=== PATIENT | male | born 1970 | race Hispanic/Latino ===

== ENCOUNTER 2021-08-28 11:31 | Emergency (ER) | payer OTHER ==
[2021-08-28] MEDS ORDERED: BUPIVACAINE 0.5% PF 10 ML VIAL ONE (11:44)
--- NOTE | 2021-08-28 12:52 | RAD REPORT ---
EXAM DESCRIPTION: RAD - Hand Left 3 View - 08/28/2021 12:36 pm CLINICAL HISTORY: hand injury Pain and swelling COMPARISON: No comparisons FINDINGS: Soft tissue laceration and tuft fractures are seen involving the third, fourth and fifth f ingers. No radiopaque foreign body.
[2021-08-28] MEDS ORDERED: TETANUS & DIPHTHERIA TOX,ADULT 0.5 ML VIAL ONE (13:45)
[2021-08-28] MEDS ORDERED: NA CHLORIDE 0.9% 50 ML ONE (13:45)
[2021-08-28] MEDS ORDERED: CEFAZOLIN SODIUM 1 GM/VIAL ONE (13:45)
[2021-08-28] MEDS ORDERED: LIDOCAINE 1% MPF 30 ML VIAL ONE (14:05)
[2021-08-28] MEDS ORDERED: ONDANSETRON 4 MG/2 ML VIAL ONE (14:47)
[2021-08-28] MEDS ORDERED: MORPHINE 4 MG/ML SYR ONE (14:47)
--- NOTE | 2021-08-28 15:33 | EDPHYS ---
Physician Documentation [facility] Name: Viraj Aviles Age: 51 yrs Sex: Male : 1970 Arrival Date: 08/28/2021 Time: 11:31 Bed 23 Private MD: ED Physician Satinder Fernandez HPI: 08/28 11:39 This 51 yrs old Male presents to ER via Ambulatory with complaints of Hand jmm Injury, Laceration To Hand. 11:39 The patient or guardian reports injury, pain. Onset: The symptoms/episode jmm began/occurred acutely, just prior to arrival. Modifying factors: The symptoms are alleviated by nothing, the symptoms are aggravated by nothing. This is a 51-year-old male with history of diabetes mellitus, hypertension the presents emerged part with multiple lacerations to the left hand. Patient states he was cut using a table saw. Patient unsure on tetanus immunization status.. Historical: - Allergies: 11:37 No Known Allergies; ab2 - PMHx: 14:57 Diabetes mellitus; Hypertensive disorder; jl7 - PSHx: 11:37 None; ab2 - Immunization history:: Adult Immunizations up to date. - Social history:: Smoking status: Patient denies any tobacco usage or history of. ROS: 11:39 Constitutional: Negative for fever, chills, and weight loss, Cardiovascular: Negative jmm for chest pain, palpitations, and edema, Respiratory: Negative for shortness of breath, cough, wheezing, and pleuritic chest pain, Abdomen/GI: Negative for abdominal pain, nausea, vomiting, diarrhea, and constipation. 11:39 Skin: Positive for laceration(s). 11:39 All other systems are negative. Exam: 11:39 Constitutional: This is a well developed, well nourished patient who is awake, alert, jmm and in no acute distress. Head/Face: atraumatic. Eyes: EOMI, no conjunctival erythema appreciated ENT: Moist Mucus Membranes Neck: Trachea midline, Supple Chest/axilla: Normal chest wall appearance and motion. Cardiovascular: Regular rate and rhythm. No edema appreciated Respiratory: Normal respirations, no respiratory distress appreciated Abdomen/GI: Non distended, soft Back: Normal ROM 11:39 Musculoskeletal/extremity: Multiple lacerations noted to the left third fourth and fifth phalanxes. Partial amputation noted to the left fourth finger.. 11:39 Skin: injury, laceration(s). 11:39 Neuro: Orientation: is normal, Mentation: is normal, Memory: is normal. 11:39 Psych: Behavior/mood is pleasant, cooperative. Vital Signs: 11:36 BP 171 / 100; Pulse 79; Resp 19; Temp 97.9; Pulse Ox 99% ; Weight 97.52 kg; Height 5 ab2 ft. 8 in. (172.72 cm); Pain 10/10; 14:40 BP 158 / 91; Pulse 70; Resp 15; Pulse Ox 98% ; jl7 15:17 BP 146 / 94; Pulse 71; Resp 15; Pulse Ox 98% ; jl7 11:36 Body Mass Index 32.69 (97.52 kg, 172.72 cm) ab2 Laceration: 18:50 Wound Repair of 6cm ( 2.4in ) subcutaneous laceration to left little fingernail, left jmm middle fingernail and left ring fingernail. Distal neuro/vascular/tendon intact. Anesthesia: Digital block administered with 9 mls of 0.5% marcaine. Wound prep: Wound irrigation by me, Copious irrigation. Skin closed with 11 4-0 Prolene using simple sutures and sterile technique. Patient tolerated well. MDM: 11:46 Patient medically screened. torres 15:30 ED course: I discussed the patient with hand surgery at [facility] whom did not m recommend a surgical washout. They recommended outpatient follow-up. I copiously irrigated the lacerations, Ancef was administered, patient prescribed oral antibiotics and given follow-up for hand surgery. Family given strict return precautions for infection.. 15:31 Data reviewed: vital signs, nurses notes. Counseling: I had a detailed discussion with torres the patient and/or guardian regarding: the historical points, exam findings, and any diagnostic results supporting the discharge/admit diagnosis, radiology results, the need for outpatient follow up, to return to the emergency department if symptoms worsen or persist or if there are any questions or concerns that arise at home. 08/28 11:46 Order name: Hand Left 3 View XRAY; Complete Time: 12:56 torres 08/28 13:06 Order name: Saline Lock; Complete Time: 14:22 kaushik Administered Medications: 11:45 Drug: Marcaine (bupivacaine) (0.5 %) 10 ml Volume: 10 ml; Route: Infiltration; bp 12:00 Follow up: Response: No adverse reaction jl7 14:00 Not Given (Patient Refused): Tetanus-Diphtheria Toxoid Adult 0.5 ml IM once jl7 14:12 Drug: Ancef (cefazolin) 1 grams Route: IVPB; Site: right forearm; jl7 14:30 Follow up: Response: No adverse reaction; IV Status: Completed infusion 7 14:45 Drug: morphine 4 mg Route: IVP; Site: right forearm; jl7 15:00 Follow up: Response: No adverse reaction; Pain is decreased jl7 14:45 Drug: Zofran (Ondansetron) 4 mg Route: IVP; Site: right forearm; jl7 15:00 Follow up: Response: No adverse reaction jl7 14:51 Drug: Lidocaine (1 %) 20 ml {Note: administered by PA. Yuriy} Volume: 20 ml; Route: jl7 Infiltration; 16:01 Follow up: Response: No adverse reaction jl7 Disposition: 08/29 15:39 Co-signature as Attending Physician, Satinder Fernandez MD I agree with the assessment and kdr plan of care. Disposition Summary: 08/28/21 15:32 Discharge Ordered Location: Home [facility] Condition: Stable [facility] Diagnosis - Left 3rd, 4th, 5th distal phalanx fracture - open [facility] Followup: [facility] - With: Charli Venegas MD - When: 2 - 3 days - Reason: Recheck today's complaints, Continuance of care, Re-evaluation by your physician Discharge Instructions: - Discharge Summary Sheet [facility] - Finger Fracture, Adult [facility] Forms: - Medication Reconciliation Form [facility] - Thank You Letter [facility] - Antibiotic Education [facility] - Prescription Opioid Use [facility] Prescriptions: - Tylenol-Codeine #3 300 mg-30 mg Oral - take 1 tablet by ORAL route every 4-6 hours; 20 tablet; Refills: 0, Product [facility] Selection Permitted - Clindamycin HCl 300 mg Oral Capsule - take 1 capsule by ORAL route every 6 hours for 10 days; 40 capsule; Refills: 0, [facility] Product Selection Permitted Signatures: Dispatcher [employer] Satinder Marshall MD MD kdr Mickail, Joel, PA PA jmm Leal, Jahala, RN RN jl7 Carlos A Obando RN RN Ag Darby Corrections: (The following items were deleted from the chart) 08/28 14:58 11:37 PMHx: None; roberto carlos jl7
--- NOTE | 2021-08-28 15:33 | ER ---
Nurse's Notes [facility] Name: Viraj Aviles Age: 51 yrs Sex: Male : 1970 Arrival Date: 08/28/2021 Time: 11:31 Bed 23 Private MD: Diagnosis: Left 3rd, 4th, 5th distal phalanx fracture - open Presentation: 08/28 11:36 Chief complaint: Patient states: "I cut my hand on a table saw at work approx 30 ab2 minutes ago.". Coronavirus screen: Vaccine status: Patient reports being unvaccinated. Client denies travel out of the [place] in the last 14 days. At this time, the client does not indicate any symptoms associated with coronavirus-19. Ebola Screen: Patient negative for fever greater than or equal to 101.5 degrees Fahrenheit, and additional compatible Ebola Virus Disease symptoms Patient denies exposure to infectious person. Patient denies travel to an Ebola-affected area in the 21 days before illness onset. No symptoms or risks identified at this time. Initial Sepsis Screen: Does the patient meet any 2 criteria? No. Patient's initial sepsis screen is negative. Does the patient have a suspected source of infection? No. Patient's initial sepsis screen is negative. Risk Assessment: Do you want to hurt yourself or someone else? Patient reports no desire to harm self or others. Onset of symptoms is unknown. 11:36 Method Of Arrival: Ambulatory ab2 11:36 Acuity: [place] 4 ab2 Historical: - Allergies: 11:37 No Known Allergies; ab2 - PMHx: 14:57 Diabetes mellitus; Hypertensive disorder; jl7 - PSHx: 11:37 None; ab2 - Immunization history:: Adult Immunizations up to date. - Social history:: Smoking status: Patient denies any tobacco usage or history of. Screenin:38 Abuse screen: Denies threats or abuse. Denies injuries from another. Nutritional ab2 screening: No deficits noted. Tuberculosis screening: No symptoms or risk factors identified. Fall Risk None identified. Assessment: 11:38 General: Appears in no apparent distress. uncomfortable, Behavior is calm, cooperative, ab2 appropriate for age. Pain: Complains of pain in left hand. Neuro: Level of Consciousness is awake, alert, obeys commands, Oriented to person, place, time, situation, Appropriate for age Portable [employer] Crew Chief are equal bilaterally Moves all extremities. Gait is steady, Speech is normal, Facial symmetry appears normal, Intact. Cardiovascular: No deficits noted. Denies chest pain, shortness of breath, Heart tones S1 S2 present Patient's skin is warm and dry. Respiratory: Airway is patent Respiratory effort is even, unlabored, Respiratory pattern is regular, symmetrical, Breath sounds are clear bilaterally. GI: No deficits noted. No signs and/or symptoms were reported involving the gastrointestinal system. : No deficits noted. No signs and/or symptoms were reported regarding the genitourinary system. Derm: Wound noted left hand Wound is Laceration. Musculoskeletal: Reports pain in left hand. Injury Description: Laceration sustained to left hand was sustained 30-60 minutes ago. moderate bleeding noted at this time. 13:00 Reassessment: Patient appears in no apparent distress at this time. No changes from jl7 previously documented assessment. Patient and/or family updated on plan of care and expected duration. Pain level reassessed. Patient is alert, oriented x 3, equal unlabored respirations, skin warm/dry/pink. 15:18 Reassessment: VLAD Yan at bedside suturing left finger injury. jl7 Vital Signs: 11:36 BP 171 / 100; Pulse 79; Resp 19; Temp 97.9; Pulse Ox 99% ; Weight 97.52 kg; Height 5 ab2 ft. 8 in. (172.72 cm); Pain 10/10; 14:40 BP 158 / 91; Pulse 70; Resp 15; Pulse Ox 98% ; jl7 15:17 BP 146 / 94; Pulse 71; Resp 15; Pulse Ox 98% ; jl7 11:36 Body Mass Index 32.69 (97.52 kg, 172.72 cm) ab2 ED Course: 11:31 Patient arrived in ED. am2 11:34 Yuriy Priest PA is PHCP. [facility] 11:34 Satinder Fernandez MD is Attending Physician. [facility] 11:36 Ag Gould is Primary Nurse. ab2 11:37 Triage completed. ab2 11:39 Arm band placed on right wrist. ab2 11:39 Patient has correct armband on for positive identification. Bed in low position. Call ab2 light in reach. Side rails up X2. 11:39 No provider procedures requiring assistance completed. ab2 12:37 Hand Left 3 View XRAY In Process Unspecified. EDMS 13:29 initiated a transfer with Ene Elliott Rn from the [facility]. eb 13:39 connected the hand surgeon production control planner for [facility] Dr. Zacarias with Yuriy Bermudez for eb patient transfer consultation/. 13:45 Missed attempt(s): 20 gauge in right antecubital area. Bleeding controlled, band aid jl7 applied, catheter tip intact. 13:50 Missed attempt(s): 22 gauge in right forearm. Bleeding controlled, band aid applied, jl7 catheter tip intact. 13:50 Inserted saline lock: 22 gauge in right forearm, using aseptic technique. ,using jl7 aseptic technique. Inserted by NACHO Sanford. 15:31 Charli Venegas MD is Referral Physician. [facility] 15:45 Wound care: to smash injury to left 3rd, 4th, and 5th fingers located on left little jl7 finger, left ring finger and left middle finger was cleaned with Betadine, irrigated with normal saline, dressed with Neosporin, nonstick gauze and coban, Patient tolerated well. 16:00 IV discontinued, intact, bleeding controlled, No redness/swelling at site. Pressure jl7 dressing applied. Administered Medications: 11:45 Drug: Marcaine (bupivacaine) (0.5 %) 10 ml Volume: 10 ml; Route: Infiltration; bp 12:00 Follow up: Response: No adverse reaction jl7 14:00 Not Given (Patient Refused): Tetanus-Diphtheria Toxoid Adult 0.5 ml IM once jl7 14:12 Drug: Ancef (cefazolin) 1 grams Route: IVPB; Site: right forearm; jl7 14:30 Follow up: Response: No adverse reaction; IV Status: Completed infusion jl7 14:45 Drug: morphine 4 mg Route: IVP; Site: right forearm; jl7 15:00 Follow up: Response: No adverse reaction; Pain is decreased jl7 14:45 Drug: Zofran (Ondansetron) 4 mg Route: IVP; Site: right forearm; jl7 15:00 Follow up: Response: No adverse reaction jl7 14:51 Drug: Lidocaine (1 %) 20 ml {Note: administered by VLAD Yan.} Volume: 20 ml; Route: jl7 Infiltration; 16:01 Follow up: Response: No adverse reaction jl7 Outcome: 15:32 Discharge ordered by MD. macdonald 16:03 Discharged to home ambulatory. jl7 16:03 Condition: stable 16:03 Discharge instructions given to patient, family, Instructed on discharge instructions, follow up and referral plans. medication usage, Demonstrated understanding of instructions, follow-up care, medications, Prescriptions given X 2. 16:04 Patient left the ED. jl7 Signatures: Dispatcher [employer] EDMS Yuriy Priest PA PA jmm Leal, Jahala, RN RN jl7 Isabel Montez amCarlos A Crum, RN RN Rowena Smith Alexis ab2 Corrections: (The following items were deleted from the chart) 14:58 11:37 PMHx: None; ab2 jl7
[2021-08-28 17:44] VITALS: TEMP 97.9
[2021-08-28 17:46] VITALS: O2SAT 98
[2021-08-28 17:47] VITALS: BP 146/94
== END 2021-08-28 16:04 | disposition home or self-care (01) ==
LOC: ER 11:31
PROC: 0JQK0ZZ Repair Left Hand Subcutaneous Tissue and Fascia, Open Approach (ICD-10-PCS; principal; 2021-08-28)
DX: S62.607B Fracture of unspecified phalanx of left little finger, initial encounter for open fracture (principal); S62.605B Fracture of unspecified phalanx of left ring finger, initial encounter for open fracture; S62.603B Fracture of unspecified phalanx of left middle finger, initial encounter for open fracture; W27.0XXA Contact with workbench tool, initial encounter; E11.9 Type 2 diabetes mellitus without complications; I10 Essential (primary) hypertension
CPT/HCPCS: 96365; 73130; 96375; 99284; 12002; J2405; J0690; 90714

== ENCOUNTER 2023-09-01 11:33 | Emergency (ER) | payer OTHER, SELFPAY ==
--- OUTSIDE RECORDS SUMMARY | 2023-09-01 11:36 | XMS REPORT | Continuity of Care Document ---
Author Name Unknown Address [address] [place] [address] [facility] thconnect Address [address] [place] [address] Care Team Providers Care [employer] Electrician Name Role Phone Rory Ramirez Attending Clinician Unavailable Gi Hernandez MD Attending Clinician [phone] JUVE MONK Attending Clinician Unavailable Padmaja Motta Attending Clinician [phone] Mary Sharif MD Attending Clinician [phone] [facility] Attending Clinician UnaJessica Varela Attending Clinician [phone] JESSICA WOLFE Attending Clinician Unavailable Payers Payer Name Policy Type Policy Number Effective Date Expirati on Date Source Problems Condition Name Condition Details Condition Category Status Onset Date Resolution Date Last Treatment Date Treating Clinician Comments Source No known active problems No known active problems Disease [facility] Allergies, Adverse Reactions, Alerts Allergy Name Allergy Type Status Severity Reaction(s) Onset Date Inactive Date Treating Clinician Comments Source No Known Drug Allergie s DA Active U 09-08 00:00: 00 [facility] Unable to Assess DA Active U 09-01 00:00: 00 [facility] No Known Drug Allergie s DA Active U 09-01 00:00: 00 [facility] NO KNOWN ALLERGIE S Drug Class Active [facility] Social History Social Habit Start Date Stop Date Quantity Comments Source Sexual [facility] Exposure to SARS-CoV-2 (event) Yes [facility] Sex Assigned At 1970 00:00:00 1970 [facility] Smoking Status Start Date Stop Date Source Tobacco smoking consumption unknown [facility] Never smoker [facility] Medications Ordered Medication Name Filled Medication Name Start Date Stop Date Current Medication? Ordering Clinician Indication Dosage Frequency Signature (SIG) Comments Components Source metFORMIN 1,000 mg tablet 10-04 00:00: 00 Yes 1000mg Take 1,000 mg by mouth 2 (two) times daily. [facility] lisinopril- hydrochloro thiazide 20-12.5 mg per tablet 10-02 00:00: 00 Yes 1{tbl} Take 1 tablet by mouth daily. [facility] Vital Signs Vital Name Observation Time Observation Value Comments [facility] Systolic blood pressure 2019-11-06 13:40:00 131 mm[Hg] [facility] Diastolic blood pressure 2019-11-06 13:40:00 84 mm[Hg] [facility] Heart rate 2019-11-06 13:40:00 82 /min [facility] Body temperature 2019-11-06 13:40:00 36.78 [facility] Respiratory rate 2019-11-06 13:40:00 18 /min [facility] Body height 2019-11-06 13:40:00 172.7 cm [facility] Body weight 2019-11-06 13:40:00 96.616 kg [facility] BMI 2019-11-06 13:40:00 32.39 kg/m2 [facility] Oxygen saturation in Arterial blood by Pulse oximetry 2019-11-06 13:40:00 97 /min [facility] Procedures Procedure Date / Time Performed Performing Clinicia n Source EMG 2023-02-03 15:37:12 Juve Monk [facility] Start Date/Time End Date/Time Encounter Type Admission Type Attending Clinicians Care Facility Care Department Encounter ID Source 2021-09-08 13:00:00 Inpatient Rory Ramirez [facility] [id number] [facility] 2023-02-02 15:00:00 2023-02-02 16:30:54 Ancillary Procedure Gi Hernandez [facility] [id number] 1..114 [id number] [facility] 2023-01-25 14:30:00 2023-01-25 14:30:00 Outpatient GUERDAJUVE STARR [facility] [id number] [facility] 2021-09-08 15:34:00 2021-09-08 15:34:00 Outpatient [facility] [id number] [facility] 2021-09-01 14:30:00 2021-09-01 14:30:00 Outpatient Elective Rory Ramirez [facility] [id number] [facility] 2021-09-01 14:30:00 2021-09-01 14:30:00 Outpatient [facility] [id number] [facility] 2019-11-08 00:00:00 2019-11-08 00:00:[address] [facility] [address] .114 [id number] [facility] 2019-11-07 00:00:00 2019-11-07 00:00:00 Telephone Mary Sharif [facility] 1.114 [id number] [facility] 2019-11-06 08:27:51 2019-11-06 08:47:51 Urgent Care P[facility], Acute Care Clinic Jessica Wolfe [facility] [address] 1.114 [id number] [facility] 2019-11-06 08:20:00 2019-11-06 08:20:00 Outpatient JESSICA HARVEY [facility] [id number] [facility] Results Test Description Test Time Test Comments Results Result Co mments Source Glucose [id number] 16:34:00* Test Item Value Reference Range Interpretation Comme nts Glucose Fingerstick (test code = WGLUC) 91 mg/dL 70-115 [employer] VIE T-PATI MOLINA T Glucose [id number] 18:32:00* Test Item Value Reference Range Interpretation Comme nts Glucose Fingerstick (test code = WGLUC) 101 mg/dL 70-115 [employer] She Boykin OR MICRO [id number] 17:05:00* Test Item Value Reference Range Interpretation Comme nts Gram Stain (test code = GS) 09/03/21 No epithelial cells seen Gram Stain (test code = GS1.1) No organisms seen OR NICOLLE Spec Culture (test code = ORMICCULT) 09/03/21 No growth after 1 day Anaerobic Culture (test code = ANC) 09/04/21 No anaerobes isolated to date, continuing Anaerobic Culture (test code = ANC3.1) No anaerobes isolated. [place] NICOLLE Spec Culture (test code = ORMICCULT2.1) agents with the possible exception of Ceftaroline. COMMENT: LEFT HANDPERFORMING SITE:[facility] [employer] [facility], [address] [place] [phone] Lens Gauger: ALICIA WELLINGTON MD,CLIA: [id number] [id number] 16:16:00* Test Item Value Reference Range Interpretation Comme nts Glucose Fingerstick (test code = WGLUC) 106 mg/dL 70-115 [employer] VIE T-PATI MOLINA T Notes Date/Time Note Provider Source 2021-09-08 18:18:00 [id number]+ [id number]/RDTHvl [id number]:18:00 [facility] [address] [place] [address] Orthopedics Operative Note Signed Patient: Viraj Aviles Medical Record#: [id number] : 1970 Acct:[id number] Age/Sex: 51 / M ADM Date: 09/08/21 Loc: [facility] Room: Report Number: [id number]: Rory Ramirez MD Orthopedic Operative Note Date of Procedure: 09/08/21 Detailed Description of Procedure: Pre Op Diagnosis: Left long finger saw wound defect S61.303D 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 phalanx M86.142 Left ring finger saw wound defect S61.305D Left ring finger osteomyelitis with bone loss distal phalanx M86.142 Left small finger saw wound defect S61.307D Left small finger osteomyelitis with bone loss distal phalanx M86.142 Post Op Diagnosis:Left long finger saw wound defect S61.303D 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 phalanx M86.142 Left ring finger saw wound defect S61.305D Left ring finger osteomyelitis with bone loss distal phalanx M86.142 Left small finger saw wound defect S61.307D Left small finger osteomyelitis with bone loss distal phalanx M86.142 Procedure: Left long finger debridement of osteomyelitis distal phalanx 34781 Left long finger secondary closure mobilizing over wound defect 10553 Left ring finger debridement of osteomyelitis distal phalanx 57529 Left ring finger secondary closure mobilizing over wound defect 27653 Left small finger debridement of osteomyelitis distal phalanx 43223 Left small finger secondary closure mobilizing over wound defect 73270 Surgeon: Rory Ramirez MD Anesthesia: General, see anesthetic record for details of method EBL: < 50 cc, none replaced Complications: none Specimens: none Implants: none Procedure details / Findings: In preop holding went over with the patient and his family the laboratory confirmation of osteomyelitis with Staph epidermidis and sensitivity profile and the new prescription we have written him to extend his antibiotic therapy for osteomyelitis the full duration. He needs to go pick those up intact that onto the end of his existing antibiotics is currently taking now. He already knows about the extent of bone loss that he created form self withthe saw so knows he is missing bone on all 3 digits and he also knows the true wound defects once they have been shown clearly to him in the office and so the game plan that he has created together with our team is to balance out the bone in the soft tissues creating functional digital tips that are well rounded well shaped well-padded over bone understanding that there will be no nail unit on the small finger and there will be modified nail units that are distorted on the long and the ring fingers. We started with the bone on each digit we can see where the osteomyelitis to case occurring at the margin of the previous saw cut soft tissue bed however appears very clean and responsive to treatment and we know from the laboratory that the Levaquin we have already had him on since the origin of the case covers the Staph epidermidis so he has been getting correct antibiotic therapy since the case began and that is the drug he will continue. Because he has an imbalance of 2 large wound defect relative to the bone defect remainders he has to be shaped down again sharp spikes and corners that we did again where he pinches and provide a smooth even pinching surface that he can actually use the hand with otherwise will feel like he is getting stabbed from the inside by doctorsand so that is done with the rongeur on each of the small and the ring finger where as on the long finger we dig out the residue of the osteomyelitis with a sharp edge of the curette but there is no paring down on the distal aspect of the long finger but we needed to do there is we had to mobilize the soft tissue envelope by elevating with a [place] blade so that will cross over and make up for the defect in the matrix created by the saw and we can closing down and still create a level flat surface and appropriate shape to the digit. Once we have shaped all the bones and taken down the osteomyelitis margins with the rongeur verified that the soft tissue beds appeared responsive to antibiotics makes it appropriate to go ahead and close in while we continue antibiotic therapy for the bones we scrub out all the wounds and then begin trimming the margins and shaping the flaps on the small finger there were 6 intersecting flaps that needed to converge in order to create a smoothrounded contour we recut them repeatedly as we inset them to create the perfect shape and avoid any apex points cones corners or other distortions spent a great deal of time on that and took out the residual germinal matrix that is deep to the dorsal nail fold so it does not produce unwanted nail spikes on this digit we leave the germinal matrix on the other 2 as he will have some form of nail most likely on those despite the high degree of damage. On the ring finger it is 3 converging flapsand on the long finger it is simply mobilizing advancing over the oblique defect zone of the junctions were closed with 5 0 chromic suture however to complete the case each digit independently dressed with a non constrictive fully padded fully protective dressing adjacent to each other DISPOSITION: Patient discharged to home. Patient's status is stable. [facility]al packet and a follow-up appointment. Patient instructed to call the practice number on front of packet for any questions including date and time of next encounter. Dr. Ramirez has directly prescribed to patient all outpatient medications, none to be dispensed by [facility]. The specific instruction at time of hospital discharge for any medications notdirectly prescribed for patient by Dr. Ramirez is that patient MUST receive all directives to either take or not take those medications from the practitioner who has originally prescribed those medications after having evaluated and diagnosed the related medical condition(s) non hand surgeryconditions that Dr. Ramirez does not evaluate or treat and thus CANNOT state to either take or not take those medications. Note that the preceding text indeed includes standardized language that accurately describes my personal methods of performing this procedure and is used for quality management nurse reproducibly on eachcase including that of this individual patient with any variances or unusual findings specifically noted. Signature authenticates the date, patient, surgeon, diagnoses and procedure but not the main body text where the quality of the voice recognition software product chosen for use is prone to substantial error. Dictated By: Rory Ramirez MD Dictated By: Signed By: Rory Ramirez MD 09/08/211824 DD/ 17 TD/TT: 09/08/211817 [employer] Superintendent: NAOMIE cc: NAOMIE; PCPUNK* Rory Ramirez MD; PCP,UNKNOWN P.OPOPOrthopedic Operative [id number] [id number]:18:00P.OPTram e for patient [id number]:19:27 [facility] quoc
--- NOTE | 2023-09-01 12:32 | RAD REPORT ---
EXAM DESCRIPTION: RAD - Pelvis - 09/01/2023 12:20 pm CLINICAL HISTORY: pain, bruising buttocks, fall COMPARISON: <Comparisons> FINDINGS: No fracture or dislocation is seen.
--- NOTE | 2023-09-01 12:34 | RAD REPORT ---
EXAM DESCRIPTION: RAD - Femur Right - 09/01/2023 12:20 pm CLINICAL HISTORY: PAIN COMPARISON: No comparisons FINDINGS: No acute fracture or dislocation.
--- NOTE | 2023-09-01 12:35 | RAD REPORT ---
EXAM DESCRIPTION: RAD - Tib Fib Right - 09/01/2023 12:21 pm CLINICAL HISTORY: Pain;Swelling COMPARISON: No comparisons FINDINGS: No fracture or dislocation seen.
--- NOTE | 2023-09-01 12:46 | RAD REPORT ---
EXAM DESCRIPTION: CT - Lower Ext Wo Con W/ Mpr - 09/01/2023 12:37 pm CLINICAL HISTORY: right leg injury, swelling, hematoma COMPARISON: No comparisons FINDINGS: The hamstring musculature of the right leg is enlarged with intramuscular fluid and hyperd ense material suggesting blood product. This is most compatible with intramuscular hematoma/ partial tearing. Small bony fragment seen at the right ischium suspicious for small avulsion, age indetermina te. No intrapelvic finding seen. Right hip is intact. All CT scans are performed using dose optimization technique as appropriate and may include automated exposure control or mA/KV adjustment according to patient size. IMPRESSION: Significant enlargement of the right hamstring musculature with intramuscular fluid and blood product suspected. This likely indicates partial-thickness muscle tear/high-grade strain. Small bony fragment adjacent to the right ischium could be small avulsion, age indeterminate.
--- NOTE | 2023-09-01 13:01 | EDPHYS ---
Physician Documentation [facility] Name: Viraj Aviles Age: 53 yrs Sex: Male : 1970 Arrival Date: 09/01/2023 Time: 11:33 Bed 6 Private MD: ED Physician Aaron Nieto HPI: 08/31 12:05 This 53 yrs old Male presents to ER via Ambulatory with complaints of Fall rn Injury, Leg Injury. 12:05 Details of fall: The patient fell from an upright position, while walking. Onset: The rn symptoms/episode began/occurred 5 day(s) ago. Associated injuries: The patient sustained Right leg. Severity of symptoms: At their worst the symptoms were moderate, in the emergency department the symptoms have improved. The patient has not experienced similar symptoms in the past. Patient reports slipped and did the splits outside in the grass 5 days ago. Patient reports pain to right buttocks and right hamstring and inner thigh area. No blood thinners. Reports pain to walk and move. Also noted bruising and swelling in the right medial thigh.. Historical: - Allergies: 12:00 No Known Allergies; mb9 - Home Meds: 12:00 atorvastatin oral [Active]; Metformin Oral [Active]; Lisinopril Oral [Active]; mb9 - PMHx: 12:00 diabetes mellitus; Hypertensive disorder; mb9 - PSHx: 12:00 None; mb9 - Immunization history:: Adult Immunizations up to date. - Infectious Disease History:: Denies. - Social history:: Smoking status: Patient denies any tobacco usage or history of. - Family history:: not pertinent. - Hospitalizations: : No recent hospitalization is reported. ROS: 12:05 Constitutional: Negative for fever, chills, and weight loss, Neck: Negative for injury, rn pain, and swelling, Cardiovascular: Negative for chest pain, palpitations, and edema, Respiratory: Negative for shortness of breath, cough, wheezing, and pleuritic chest pain, Abdomen/GI: Negative for abdominal pain, nausea, vomiting, diarrhea, and constipation, Back: Negative for injury and pain, MS/Extremity: Positive for pain to right thigh Exam: 12:05 Constitutional: This is a well developed, well nourished patient who is awake, alert, rn and in no acute distress. MS/ Extremity: Pulses equal, no cyanosis. Neurovascular intact. Ecchymosis and swelling noted to right gluteus region but most significant right medial thigh and proximal tibia/popliteal region. Compartments are soft. Pulses intact. No bony tenderness. No gross deformity noted or angulation. Vital Signs: 11:59 BP 143 / 92; Pulse 68; Resp 18; Temp 98; Pulse Ox 100% ; Weight 83.91 kg; Height 5 ft. mb9 8 in. ; Pain 8/10; 13:06 BP 118 / 78; Pulse 74; Resp 18; Pulse Ox 100% on R/A; mb9 11:59 Body Mass Index 28.13 (83.91 kg, 172.72 cm) mb9 11:59 Pain Scale: Adult mb9 MDM: 11:37 Patient medically screened. rn 12:57 Differential diagnosis: contusion, fracture, Avulsion fracture, muscle or tendon tear. rn Data reviewed: vital signs, nurses notes, radiologic studies, CT scan, plain films, and as a result, I will discharge patient. Counseling: I had a detailed discussion with the patient and/or guardian regarding the historical points, exam findings, and any diagnostic results supporting the discharge/admit diagnosis, radiology results, the need for outpatient follow up, to return to the emergency department if symptoms worsen or persist or if there are any questions or concerns that arise at home. Special discussion: I discussed with the patient/guardian in detail that at this point there is no indication for admission to the hospital. It is understood, however, that if the symptoms persist or worsen the patient needs to return immediately for re-evaluation. Based on the history and exam findings, there is no indication for further emergent testing or inpatient evaluation. I discussed with the patient/guardian the need to see the orthopedic surgeon for further evaluation of the symptoms. I discussed with the patient/guardian the need to see the primary care provider for further evaluation of the symptoms. ED course: Patient with probably moderate hamstring tear and small ischial avulsion injury. Will place in knee immobilizer and crutches and discharged home. Patient will follow-up with PCP for MRI and follow-up with orthopedics.. 08/31 12:01 Order name: XRAY Pelvis; Complete Time: 12:50 rn 08/31 12:01 Order name: XRAY Femur RIGHT; Complete Time: 12:50 rn 08/31 12:01 Order name: XRAY Tib Fib RIGHT; Complete Time: 12:50 rn 08/31 12:06 Order name: Lower Ext Wo Con W/ Mpr; Complete Time: 12:50 EDMS 08/31 12:57 Order name: Knee Immobilizer; Complete Time: 13:00 rn 08/31 12:57 Order name: Crutches; Complete Time: 13:00 rn Administered Medications: No medications were administered Disposition Summary: 09/01/23 13:00 Discharge Ordered Notes: Location: Home rn Problem: new rn Symptoms: have improved rn Condition: Stable rn Diagnosis - Right hamstring musle tear rn - Nondisplaced avulsion fracture of right ischium, initial encounter for closed rn fracture Followup: rn - With: Private Physician - When: As needed - Reason: Recheck today's complaints, Re-evaluation by your physician Discharge Instructions: - Discharge Summary Sheet rn - Hamstring Strain rn - How to Use a Knee Immobilizer rn Forms: - Medication Reconciliation Form rn - Antibiotic furnace door tender - Prescription Opioid Use rn - Patient Portal Instructions rn - Leadership Thank You Letter rn Prescriptions: - Tramadol 50 mg Oral tablet - take 1 tablet ORAL route every 8 hours as needed; 15 tablet; Refills: 0, rn Product Selection Permitted Signatures: Dispatcher [employer] EDOH Aaron Nieto MD MD rn Breneman, Mary Beth, RN RN mb9 Corrections: (The following items were deleted from the chart) 12:01 12:01 Pelvis+RAD.RAD.BRZ ordered. EDMS EDMS 12:01 12:01 Femur Right+RAD.RAD.BRZ ordered. EDMS EDMS 12:01 12:01 Tib Fib Right+RAD.RAD.BRZ ordered. EDMS EDMS 12:08 12:05 Constitutional: This is a well developed, well nourished patient who is awake, rn alert, and in no acute distress. rn
--- NOTE | 2023-09-01 13:01 | ER ---
Nurse's Notes [facility] Name: Viraj Aviles Age: 53 yrs Sex: Male : 1970 Arrival Date: 09/01/2023 Time: 11:33 Bed 6 Private MD: Diagnosis: Right hamstring musle tear;Nondisplaced avulsion fracture of right ischium, initial encounter for closed fracture Presentation: 08/31 11:59 Chief complaint: Patient states: "I fell on Tuesday and hurt my right leg. It hurts the mb9 most on the inside of the leg and i'm bruised. I didn't hit my head and I don't take blood thinners.". Coronavirus screen: At this time, the client does not indicate any symptoms associated with coronavirus-19. Ebola Screen: No symptoms or risks identified at this time. Initial Sepsis Screen: Does the patient meet any 2 criteria? No. Patient's initial sepsis screen is negative. Does the patient have a suspected source of infection? No. Patient's initial sepsis screen is negative. Risk Assessment: Do you want to hurt yourself or someone else? Patient reports no desire to harm self or others. Onset of symptoms was 2023. 11:59 Method Of Arrival: Ambulatory mb9 11:59 Acuity: LEIGHTON 4 mb9 Triage Assessment: 12:01 General: Appears uncomfortable, Behavior is calm, cooperative. Pain: Complains of pain mb9 in right leg Pain currently is 8 out of 10 on a pain scale. Quality of pain is described as throbbing, Pain began 2-3 days ago. Is continuous. Pain: Aggravated by increased activity, repositioning, weight bearing. EENT: No signs and/or symptoms were reported regarding the EENT system. Neuro: Donohue Agitation-Sedation Scale (RASS): 0 - Alert and Calm Level of Consciousness is awake, alert, obeys commands, Oriented to person, place, time, situation, Appropriate for age. Cardiovascular: Patient's skin is warm and dry. Respiratory: Airway is patent Respiratory effort is even, unlabored, Respiratory pattern is regular, symmetrical. GI: Abdomen is flat, non-distended, Bowel sounds present X 4 quads. Abd is soft and non tender X 4 quads. : No signs and/or symptoms were reported regarding the genitourinary system. Derm: Bruising that is bright red, dark purple, on right leg. Musculoskeletal: Range of motion: intact in all extremities, Swelling present in right leg. Historical: - Allergies: 12:00 No Known Allergies; mb9 - Home Meds: 12:00 atorvastatin oral [Active]; Metformin Oral [Active]; Lisinopril Oral [Active]; mb9 - PMHx: 12:00 diabetes mellitus; Hypertensive disorder; mb9 - PSHx: 12:00 None; mb9 - Immunization history:: Adult Immunizations up to date. - Infectious Disease History:: Denies. - Social history:: Smoking status: Patient denies any tobacco usage or history of. - Family history:: not pertinent. - Hospitalizations: : No recent hospitalization is reported. Screenin:02 [facility] ED Fall Risk Assessment (Adult) History of falling in the last 3 months, mb9 including since admission Yes- single mechanical fall (1 pt) Confusion or Disorientation No (0 pts) Intoxicated or Sedated No (0 pts) Impaired Gait No (0 pts) Mobility Assist Device Used No (0 pt) Altered Elimination No (0 pt) Score/Fall Risk Level 3 or more points = High Risk Oriented to surroundings, Maintained a safe environment, Educated pt \\T\\ family on fall prevention, incl call for assistance when getting out of bed, Assessed \\T\\ reinforced patient's understanding of fall precautions. Abuse screen: Denies threats or abuse. Nutritional screening: No deficits noted. Tuberculosis screening: No symptoms or risk factors identified. Assessment: 13:06 Reassessment: No changes from previously documented assessment. Patient and/or family mb9 updated on plan of care and expected duration. Pain level reassessed. Patient is alert, oriented x 3, equal unlabored respirations, skin warm/dry/pink. Vital Signs: 11:59 BP 143 / 92; Pulse 68; Resp 18; Temp 98; Pulse Ox 100% ; Weight 83.91 kg; Height 5 ft. mb9 8 in. ; Pain 8/10; 13:06 BP 118 / 78; Pulse 74; Resp 18; Pulse Ox 100% on R/A; mb9 11:59 Body Mass Index 28.13 (83.91 kg, 172.72 cm) mb9 11:59 Pain Scale: Adult mb9 ED Course: 11:36 Patient arrived in ED. mr 11:37 Aaron Nieto MD is Attending Physician. rn 11:58 Bhargavi Figueroa, RN is Primary Nurse. mb9 11:59 Arm band placed on. mb9 12:00 Triage completed. mb9 12:02 Placed in gown. Bed in low position. Call light in reach. Side rails up X 1. Provided mb9 Education on: press call light if needing anything. Client placed on continuous cardiac and pulse oximetry monitoring. NIBP monitoring applied. 12:21 XRAY Pelvis In Process Unspecified. EDMS 12:21 XRAY Femur RIGHT In Process Unspecified. EDMS 12:21 XRAY Tib Fib RIGHT In Process Unspecified. EDMS 12:39 Lower Ext Wo Con W/ Mpr In Process Unspecified. EDMS 13:06 No provider procedures requiring assistance completed. Patient did not have IV access mb9 during this emergency room visit. 13:07 Crutch training done. Knee immobilizer applied on right knee. mb9 Administered Medications: No medications were administered Medication: 12:03 VIS not applicable for this client. mb9 Outcome: 13:00 Discharge ordered by . rn 13:07 Discharged to home ambulatory, with crutches, with family, mbReji 13:07 Condition: stable 13:07 Discharge instructions given to patient, family, Instructed on discharge instructions, follow up and referral plans. Demonstrated understanding of instructions, follow-up care, medications, Prescriptions given X 1, 13:16 Patient left the ED. mb9 Signatures: Dispatcher [employer] Bhargavi Dumont, Reg Reg Aaron Nieto MD MD rn Breneman, Mary Beth, RN RN [email or web address]
[2023-09-01 13:27] VITALS: BP 118/78; TEMP 98; O2SAT 100
== END 2023-09-01 13:16 | disposition home or self-care (01) ==
LOC: ER 11:33
DX: S32.614A Nondisplaced avulsion fracture of right ischium, initial encounter for closed fracture (principal); S76.311A Strain of muscle, fascia and tendon of the posterior muscle group at thigh level, right thigh, initial encounter
CPT/HCPCS: 72170; 73700; 76377; 99283